=== PATIENT | male | born 1955 | race Caucasian/White ===

== ENCOUNTER 2016-11-14 08:00 | Day surgery (SDC) | payer OTHER ==
[2016-11-12 12:22] VITALS: BMI 38.7
[2016-11-14] MEDS ORDERED: BUPIVACAINE HCL/PF 2.5 MG/ML - 30 ML VIAL IJ ONE (13:07)
[2016-11-14] MEDS ORDERED: MIDAZOLAM HCL 2 MG/2 ML SINGLE DOSE VIAL ONE (13:08)
[2016-11-14] MEDS ORDERED: oxyCODONE HCL 5 MG TABLET PO PRN (13:16)
[2016-11-14] MEDS ORDERED: ONDANSETRON 4 MG/2 ML VIAL IVPUSH PRN (13:16)
[2016-11-14] MEDS ORDERED: PROMETHAZINE HCL 25 MG/1 ML VIAL IVPUSH PRN (13:16)
[2016-11-14] MEDS ORDERED: LACTATED RINGERS SOLUTION 1,000 ML IV SCH (13:30)
[2016-11-14] MEDS ORDERED: PROPOFOL 20 ML ONE ×2 (13:31→14:10)
[2016-11-14] MEDS ORDERED: ceFAZolin SODIUM 1 GM VIAL ONE (13:37)
[2016-11-14] MEDS ORDERED: DEXAMETHASONE SOD PHOSPHATE 4 MG/1 ML VIAL ONE (13:37)
[2016-11-14] MEDS ORDERED: KETOROLAC TROMETHAMINE 30 MG/1 ML VIAL ONE (13:37)
[2016-11-14] MEDS ORDERED: SUCCINYLCHOLINE CHLORIDE 200 MG/10 ML VIAL ONE (14:13)
[2016-11-14] MEDS ORDERED: BUPIVACAINE HCL/PF 0.25% (2.5MG/ML) 10 ML VIAL IJ ONE (14:17)
[2016-11-14 17:30] VITALS: TEMP 98.5
[2016-11-14 18:00] VITALS: BP 138/72; PULSE 76
--- NOTE | 2016-11-16 00:10 | OP ---
DATE OF OPERATION: 11/14/2016 SURGEON: Ramakrishna aY MD MARKETING PROGRAM COORDINATOR: ANH Merino PREOPERATIVE DIAGNOSES: 1. Right knee medial and lateral meniscal tear. 2. Right knee cartilage injury. 3. Right knee synovitis. POSTOPERATIVE DIAGNOSES 1. Right knee medial and lateral meniscal tear. 2. Right knee cartilage injury. 3. Right knee synovitis. PROCEDURE: 1. Right knee arthroscopy with partial meniscectomy, medial and lateral meniscus. 2. Right knee arthroscopy with chondroplasty and abrasion-plasty. 3. Right knee arthroscopy with synovectomy - major. CPT code 09139, 26516, 53928 FINDINGS: 1. Medial meniscus body and horn tear. 2. Lateral meniscus anterior horn and posterior horn tear. 3. Synovitis of the patellofemoral, medial, and lateral notch area. 4. Diffuse grade 2-3 cartilage injury medial femoral condyle and tibial plateau. 5. ACL and PCL intact. 6. Anterior grade 2-3 cartilage injury of the lateral femoral condyle and tibial plateau. 7. Central grade 2-4 cartilage injury of the patellofemoral trochlea. DESCRIPTION OF PROCEDURE: Informed consent was obtained. The patient was taken to the operating room where the right lower extremity was prepped and draped in a sterile fashion. A tourniquet was placed on the right upper thigh but not inflated. Using standard arthroscopic technique, a lateral incision and portal were made which allowed for introduction of the camera into the suprapatellar bursa. This was then taken to the medial joint line where under direct visualization, a medial incision and portal were made. Excessive synovium noted in the medial, lateral, patellofemoral and notch area was removed by the up-biting shaver and Bovie cautery. This was found to bring inflammatory tissue into the joint surface, a source of joint pain and dysfunction. Probing of the medial and lateral meniscus found tears described in the findings. These were removed with an up-biting shaver and taken back to a stable rim. Grade 2-3 degenerative changes were treated with chondroplasty, removing all flaking surfaces with low setting Bovie used along the periphery. Grade 4 changes were treated with abrasion-plasty. All areas of the knee were once again re-examined. The knee was then drained. A single suture was placed on all portals. Sterile dressing was placed. The patient was transferred to the recovery room. RAMAKRISHNA JACOBS M.D. [id number]
== END 2016-11-14 18:04 | disposition home or self-care (01) ==
LOC: FASU 08:00
PROVIDERS: ATTEND Orthopaedic Surgery
PROC: 0SBC4ZZ Excision of Right Knee Joint, Percutaneous Endoscopic Approach (ICD-10-PCS; 2016-11-14)
PROC: 0SBC4ZZ Excision of Right Knee Joint, Percutaneous Endoscopic Approach (ICD-10-PCS; 2016-11-14)
PROC: 0SBC4ZZ Excision of Right Knee Joint, Percutaneous Endoscopic Approach (ICD-10-PCS; principal; 2016-11-14 13:58)
DX: S83.241A Other tear of medial meniscus, current injury, right knee, initial encounter (principal); S83.281A Other tear of lateral meniscus, current injury, right knee, initial encounter; S83.8X1A Sprain of other specified parts of right knee, initial encounter; M65.861 Other synovitis and tenosynovitis, right lower leg; X58.XXXA Exposure to other specified factors, initial encounter; Y93.9 Activity, unspecified; Y92.9 Unspecified place or not applicable
CPT/HCPCS: 94760

== ENCOUNTER 2019-02-15 08:11 | Day surgery (SDC) | payer OTHER ==
[2019-02-14 14:14] VITALS: BMI 38.5
[~2019-02-15 08:11] MED LIST: CHONDROITIN SU A/HYALUR SOD 1 KIT IO ONE; EPINEPHrine/PF 1 MG/1 ML (1:1,000) AMPULE SQ ONE; FLURBIPROFEN 0.03% OPHTH SOLN 2.5 ML BOTTLE OP SCH; LIDOCAINE HCL 1% PRESERVATIVE FREE - 30ML VIAL IO ONE; LIDOCAINE HCL 4% PRESERVE-FREE 5 ML AMP TP ONE; POVIDONE-IODINE 5% OPHTHALMIC PREP 30 ML SOLUTION OD ONE
[2019-02-15] MEDS ORDERED: CIPROFLOXACIN HCL 0.3% OPHTH 2.5ML BOTTLE ONE (08:26)
[2019-02-15] MEDS ORDERED: CYCLOPENTOLATE HCL 1% OPHTH SOLN 2 ML BOTTLE ONE (08:26)
[2019-02-15] MEDS ORDERED: TROPICAMIDE 1% OPHTH SOLN 15 ML BOTTLE ONE (08:27)
[2019-02-15] MEDS ORDERED: PHENYLEPHRINE 2.5% OPHTH SOLN 15 ML BOTTLE ONE (08:27)
[2019-02-15] MEDS: TROPICAMIDE 1% OPHTH SOLN 15 ML BOTTLE OP SCH ×3 (08:50→09:13)
[2019-02-15] MEDS: CYCLOPENTOLATE HCL 1% OPHTH SOLN 2 ML BOTTLE OP SCH ×3 (08:50→09:13)
[2019-02-15] MEDS: DICLOFENAC SODIUM 0.1% OPHTHALMIC 2.5ML BOTTLE ONE ×3 (08:50→09:13)
[2019-02-15] MEDS: CIPROFLOXACIN HCL 0.3% OPHTH 2.5ML BOTTLE OP SCH ×3 (08:50→09:13)
[2019-02-15] MEDS: PHENYLEPHRINE 2.5% OPHTH SOLN 15 ML BOTTLE OP SCH ×3 (08:51→09:13)
[2019-02-15] MEDS ORDERED: oxyCODONE HCL 5 MG TABLET PO PRN ×2 (10:04)
[2019-02-15] MEDS ORDERED: ONDANSETRON 4 MG/2 ML VIAL IVPUSH PRN (10:04)
[2019-02-15] MEDS ORDERED: LIDOCAINE HCL 4% PRESERVE-FREE 5 ML AMP ONE (10:20)
[2019-02-15] MEDS ORDERED: EPINEPHrine/PF 1 MG/1 ML (1:1,000) AMPULE ONE ×2 (10:21→10:54)
[2019-02-15] MEDS ORDERED: LIDOCAINE HCL/PF 1% SDV 5ML VIAL ONE (10:21)
[2019-02-15] MEDS ORDERED: TETRACAINE 0.5% OPHTH SOLN 2 ML BOTTLE ONE (10:21)
[2019-02-15] MEDS ORDERED: TETRACAINE 0.5% OPHTH SOLN 2 ML BOTTLE OD ONE (10:23)
[2019-02-15] MEDS ORDERED: MIDAZOLAM HCL 2 MG/2 ML SINGLE DOSE VIAL ONE (10:43)
[2019-02-15] MEDS ORDERED: LIDOCAINE HCL 4% PRESERVE-FREE 5 ML AMP TP ONE (10:46)
[2019-02-15] MEDS ORDERED: DEXAMETHASONE SOD PHOSPHATE 4 MG/1 ML VIAL ONE (10:46)
[2019-02-15] MEDS ORDERED: POVIDONE-IODINE 5% OPHTHALMIC PREP 30 ML SOLUTION OD ONE (10:47)
[2019-02-15] MEDS ORDERED: BSS (NA/CA/MG/K) BALANCED SALT SOLUTION OPHTH SOLN 15 ML BOTTLE IO ONE ×2 (10:51→10:58)
[2019-02-15] MEDS ORDERED: LIDOCAINE HCL 1% PRESERVATIVE FREE - 30ML VIAL IO ONE (10:54)
[2019-02-15] MEDS ORDERED: CHONDROITIN SU A/HYALUR SOD 1 KIT IO ONE (10:56)
[2019-02-15] MEDS ORDERED: EPINEPHrine 1:10,000 (P-F SYR) 1 MG/10 ML DISP.SYRIN IO ONE (10:58)
[2019-02-15] MEDS ORDERED: EPINEPHrine/PF 1 MG/1 ML (1:1,000) AMPULE SQ ONE (11:05)
[2019-02-15] MEDS ORDERED: CHONDROITIN SU A/HYALUR SOD 1 KIT ONE (11:49)
[2019-02-15 12:01] VITALS: PULSE 50; TEMP 97.5
[2019-02-15] MEDS ORDERED: ACETAMINOPHEN 325 MG TABLET (FP) ONE (12:16)
[2019-02-15] MEDS ORDERED: ACETAMINOPHEN 325 MG TABLET (FP) PO ONE ×2 (12:17→12:18)
[2019-02-15 14:41] VITALS: BP 119/58
--- NOTE | 2019-02-16 08:15 | SPEC ---
DATE OF OPERATION: 02/15/2019 PREOPERATIVE DIAGNOSIS: Cataract, right eye. POSTOPERATIVE DIAGNOSIS: Cataract, right eye, with astigmatism. OPERATION: Planned phacoemulsification with posterior chamber lens implantation, right eye. SURGEON: Jerrell Reed M.D. PARAPROFESSIONAL AIDE TEACHER: None. ANESTHESIA: Topical. COMPLICATIONS: None. PROCEDURE: The patient was premarked in the ambulatory holding area for placement of a toric lead. Anesthesia began intravenous fluids. The patient was brought into the operating room, where he was positioned for surgery, and prepped and draped in the usual manner for sterile ophthalmic surgery. A speculum was inserted into the right eye. A marker was used again to indicate where the toric lens would be placed. Side port incisions were made for temporal surgical procedure. The temporal incision preservative-free lidocaine with epinephrine was then infused into the anterior chamber, followed by Viscoat. A temporal incision was made into the anterior chamber. A 360-degree continuous capsulorrhexis was then performed without complication. The nucleus was removed with phacoemulsification, with posterior capsule remaining intact. The cortex was then removed. The posterior capsule was polished. An intraocular lens was then inserted in the bag and well positioned, following the toric markings for astigmatism improvement. The remaining Viscoat was removed from the eye. Again, the positioning was checked for the intraocular lens and readjusted slightly for proper positioning. The wound was then sealed and checked. There was no leakage. The speculum was removed. The patient completed the procedure in an uncomplicated fashion and went to the ambulatory area in stable condition. JERRELL REED M.D. REESE/[id number]
== END 2019-02-15 13:20 | disposition home or self-care (01) ==
LOC: JASU-SURG 08:11
PROVIDERS: ATTEND Ophthalmology
PROC: 08RJ3JZ Replacement of Right Lens with Synthetic Substitute, Percutaneous Approach (ICD-10-PCS; principal; 2019-02-15 10:00)
DX: H26.9 Unspecified cataract (principal); H52.201 Unspecified astigmatism, right eye